=== PATIENT | female | born 1960 | race Caucasian/White ===

== ENCOUNTER 2019-12-12 11:23 | Emergency (ER) | payer MEDICAID ==
[2019-12-12 11:48] VITALS: BP 116/65
--- NOTE | 2019-12-12 12:54 | ED Physician Documentation ---
PD HPI URI - Stated complaint Stated Complaint: FEVER/SORE THROAT - Chief complaint Chief Complaint: General - History obtained from History obtained from: Patient - History of Present Illness Timing - onset: How many days ago (2) Timing duration: Days (2) Timing details: Abrupt onset, Still present Associated symptoms: Fever, Chills, Nasal congestion, Sore throat, Dry cough, Other (general aches) Contributing factors: Travel (She traveled to [facility] last week and returned yesterday. She started being ill while there 2 days ago. She has cough fever sore throat body aches and general malaise. She felt very tired and slept 12 hours yesterday and still feels tired. No headache or vomiting.) Similar symptoms before: Has not had sx before Review of Systems Constitutional: reports: Fever, Chills, Myalgias, Fatigue Nose: reports: Congestion Throat: reports: Sore throat Respiratory: reports: Cough GI: reports: Nausea. denies: Vomiting, Diarrhea Skin: denies: Rash Neurologic: reports: Headache (mild). denies: Confused, Altered mental status PD PAST MEDICAL HISTORY - Past Medical History Cardiovascular: None Respiratory: None - Present Medications Home Medications: Ambulatory Orders Medication Instructions Recorded Confirmed Benzonatate [Tessalon Perle] 100 mg PO TID PRN #20 capsule 12/12/19 Oseltamivir [Tamiflu] 75 mg PO BID #10 capsule 12/12/19 PD ED PE NORMAL - Vitals Vital signs reviewed: Yes - General General: Alert and oriented X 3, No acute distress, Well developed/nourished - HEENT HEENT: Ears normal, Moist mucous membranes, Pharynx benign - Neck Neck: Supple, no meningeal sign, No adenopathy - Cardiac Cardiac: RRR, No murmur - Respiratory Respiratory: No respiratory distress, Clear bilaterally - Abdomen Abdomen: Soft, Non tender - Derm Derm: Normal color, Warm and dry, No rash - Neuro Neuro: Alert and oriented X 3, No motor deficit, Normal speech (slight hoarseness) Results - Vitals Vitals: Vital Signs - 24 hr 12/12/19 11:44 Temperature 38.4 C H Heart Rate 90 Respiratory 18 Rate Blood Pressure 116/65 O2 Saturation 98 Oxygen O2 Source Room air - Labs Labs: Laboratory Tests 12/12/19 11:53 Influenza A (Rapid) POSITIVE H Influenza B (Rapid) Negative PD MEDICAL DECISION MAKING - ED course Complexity details: considered differential (She has flulike symptoms and test positive for influenza A. Clinically her throat does not look strep like. She does mention and request Tamiflu. Will treat symptoms as well.), d/w patient Departure - Departure Disposition: 01 Home, Self Care Clinical Impression: Influenza A Condition: Stable Record reviewed to determine appropriate education?: Yes Instructions: ED Flu Follow-Up: Gomez Manning [Primary Care Provider] - Prescriptions: Benzonatate [Tessalon Perle] 100 mg PO TID PRN #20 capsule PRN Reason: Cough Oseltamivir [Tamiflu] 75 mg PO BID #10 capsule Comments: Stay well-hydrated. Aspirin Tylenol or ibuprofen type medicines as needed for fevers and aches. [id number] cough medicine or even the honey and tea can be helpful for the cough. Use benzonatate if needed for cough suppression as well. Oseltamivir (Tamiflu) twice daily for 5 days to hopefully lessen the symptoms of the flu and decrease the duration a little bit. Anticipate about 8-day average duration for flu symptoms. Hopefully a day or 2 less with the Tamiflu. Discharge Date/Time: 12/12/19 13:20
[2019-12-12] MEDS ORDERED: BENZONATATE 100 MG CAPSULE PO STA (13:10)
[2019-12-12] MEDS ORDERED: NAPROXEN 250 MG TABLET PO STA (13:10)
[2019-12-12] MEDS ORDERED: DEXAMETHASONE 10 MG/ML VIAL PO STA (13:10)
[2019-12-12] MEDS ORDERED: CHERRY SYRUP 10 ML UDC PO ONE (13:10)
== END 2019-12-12 13:20 | disposition home or self-care (01) ==
LOC: ED 11:23
DX: J10.1 Influenza due to other identified influenza virus with other respiratory manifestations (principal)
CPT/HCPCS: 87275; 87276; 99283; 99284; A9270

== ENCOUNTER 2023-02-10 08:50 | Outpatient (CLI) | payer MEDICAID | END 2023-02-10 23:59 | disposition EMS.NT | LOC: EMS 08:50 | DX: S60.512A Abrasion of left hand, initial encounter (principal); Y04.2XXA Assault by strike against or bumped into by another person, initial encounter; Y92.414 Local residential or business street as the place of occurrence of the external cause ==

== ENCOUNTER 2023-11-24 21:32 | Outpatient (CLI) | payer BC | END 2023-11-24 21:33 | disposition critical access hospital (66) | LOC: EMS 21:32 | DX: Z04.6 Encounter for general psychiatric examination, requested by authority (principal); R41.82 Altered mental status, unspecified; F10.129 Alcohol abuse with intoxication, unspecified | CPT/HCPCS: A0425; A0429 ==

== ENCOUNTER 2023-11-24 21:40 | Emergency (ER) | payer BC, MEDICAID ==
--- NOTE | 2023-11-24 21:39 | ED Physician Documentation ---
History of Present Illness - Stated complaint Stated Complaint: ETOH - History obtained from History obtained from: EMS - Additonal information Additional information: HPI is almost exclusively from EMS; patient is minimally responding to my questions. However, she does answer a few of them, mostly with head gestures (yes/no nod/shake) but some answers are verbalized with 1-2 word answers. BIBA. Patient reportedly had a verbal argument with her , drove herself to [place] where EMS found her. Unclear who called 911. EMS arrived to find the patient's in her car, unresponsive. They also found a bottle of wine; the bottle was empty. En route to the ED, a nasal airway was placed due to patient's low GCS; however, the patient immediately sat up and was obviously awake at that point. Thus, the nasal trumpet was immediately removed. However, for the remainder of the trip to the emergency department, as well as for the most part on my attempts at HPI/ROS, the patient is sitting up with her head in her hands and not responding to most of my questions nor the questions of the ED staff. One of the questions she is answering regarding suicidal ideation: She shakes her head indicating "no" when asked if she is thinking of hurting herself or anyone else. She does this on 2 separate occasions when the question is asked one of the questions she is answering regarding suicidal ideation: She shakes her head indicating "no" when asked if she is thinking of hurting herself or anyone else. She does this on 2 separate occasions when the question is asked. Review of Systems Unable to obtain: Uncooperative PD PAST MEDICAL HISTORY - Past Medical History Past Medical History: No Other Past Medical History: unknown - Present Medications Home Medications: Ambulatory Orders Medication Instructions Recorded Confirmed Benzonatate [Tessalon Perle] 100 mg PO TID PRN #20 capsule 12/12/19 Oseltamivir [Tamiflu] 75 mg PO BID #10 capsule 12/12/19 - Allergies Allergies/Adverse Reactions: Allergies Allergy/AdvReac Type Severity Reaction Status Date / Time Unable to Assess Allergy Verified 11/24/23 21:52 PD ED PE NORMAL - Vitals Vital signs reviewed: Yes - General General: Well developed/nourished, Other (sitting up in stretcher, knees bent and holding head between knees and/or (at times) in her hands) - HEENT HEENT: Atraumatic, PERRL, EOMI (by observation ) - Cardiac Cardiac: RRR, No murmur - Respiratory Respiratory: No respiratory distress, Clear bilaterally - Abdomen Abdomen: Soft, Non tender - Derm Derm: Normal color, Warm and dry - Neuro Eye Opening: To Voice Motor: Localizes to Pain - Free text exam Free text exam: regarding GCS: cannot ascertain GCS, as she will not answer when asked what is the year, where she is Results - Vitals Vitals: Oxygen O2 Source Room air - Labs Labs: Laboratory Tests 11/24/23 11/24/23 21:48 21:48 WBC 6.0 RBC 4.98 Hgb 13.9 Hct 44.1 MCV 88.6 MCH 27.9 MCHC 31.5 L RDW 13.9 Plt Count 193 MPV 10.0 Neut # (Auto) 3.8 Lymph # (Auto) 1.6 [place] # (Auto) 0.4 Eos # (Auto) 0.1 Baso # (Auto) 0.0 Absolute Nucleated RBC 0.00 Nucleated RBC % 0.0 Sodium 137 Potassium 3.7 Chloride 102 Carbon Dioxide 23 Anion Gap 12.0 BUN 11 Creatinine 0.7 Estimated GFR (MDRD) 85 L Glucose 132 H Calcium 9.4 Magnesium 2.1 Total Bilirubin 0.4 AST 22 ALT 13 Alkaline Phosphatase 60 Total Creatine Kinase 95 Total Protein 7.1 Albumin 4.4 Globulin 2.7 Albumin/Globulin Ratio 1.6 Lipase 25 TSH 11.97 H Salicylates < 1.5 Acetaminophen 0.1 Ethyl Alcohol 166.6 PD Medical Decision Making - ED course Complexity details: reviewed results, re-evaluated patient, considered differential, d/w patient, d/w family ED course: Patient's arrived after my initial H+P. After tests resulted, I discussed the results with patient (with her express permission, this was done while was in the room). The patient is AAOx3 on reevaluation, in NAD, conversant and appropriate. She again denies SI. Normal CBC, ER abdominal panel. Incidental note of high TSH is d/w patient (11.97) and I advised her to follow up with PCP for further evaluation of this abnormal thyroid test. Patient is requesting d/c home and tells me she feels safe and comfortable with d/c home with (this was also discussed in absence of 's presence). Departure - Departure Disposition: 01 Home, Self Care Clinical Impression: Alcohol intoxication Qualifiers: Complication of substance-induced condition: uncomplicated Qualified Code(s): F10.920 - Alcohol use, unspecified with intoxication, uncomplicated Condition: Good Instructions: ED Alcohol Intoxication Follow-Up: Gomez Manning [Primary Care Provider] - Comments: As we discussed, an incidental finding that is abnormal enough to warrant mentioning it to your primary care provider is your TSH level. TSH stands for thyroid-stimulating hormone; it is generally considered the "screening test" for thyroid problems. Your TSH level was 11.97, with the high-normal being 5.6. Thus, your TSH level is twice as high as it should be. This can be further evaluated by your primary care provider; contact your PCP's office when they are next open to arrange for follow-up appointment. Forms: PCP List Discharge Date/Time: 11/24/23 23:23
[2023-11-24 21:56] LABS: BASOPHILS % (AUTO) 0.7 %; EOSINOPHILS # (AUTO) 0.1 10^3/uL (0.0-0.7); EOSINOPHILS % (AUTO) 1.3 %; HCT - HEMATOCRIT 44.1 % (37.0-47.0); HGB - HEMOGLOBIN 13.9 g/dL (12.0-16.0); LYMPHOCYTES # (AUTO) 1.6 10^3/uL (1.5-3.5); LYMPHOCYTES % (AUTO) 26.4 %; MEAN CORPUSCULAR HEMOGLOBIN 27.9 pg (27.0-31.0); MEAN CORPUSCULAR HGB CONC 31.5 g/dL (32.0-36.0); MEAN CORPUSCULAR VOLUME 88.6 fL (81.0-99.0); MONOCYTES # (AUTO) 0.4 10^3/uL (0.0-1.0); NEUTROPHILS # (AUTO) 3.8 10^3/uL (1.5-6.6); NEUTROPHILS % (AUTO) 64.3 %; PLT - PLATELET COUNT 193 10^3/uL (130-450); RED BLOOD COUNT 4.98 10^6/uL (4.20-5.40); RED CELL DISTRIBUTION WIDTH 13.9 % (12.0-15.0)
[2023-11-24 21:57] VITALS: O2SAT 100
[2023-11-24 22:16] LABS: ACETAMINOPHEN 0.1 ug/mL; ALBUMIN 4.4 g/dL (3.2-5.5); ALBUMIN/GLOBULIN RATIO 1.6 (1.0-2.2); ALKALINE PHOSPHATASE 60 IU/L (42-121); ALT ALANINE AMINOTRANSFERASE 13 IU/L (10-60); AST ASPARTATE AMINOTRANSFERASE 22 IU/L (10-42); BILIRUBIN,TOTAL 0.4 mg/dL (0.2-1.0); BUN - BLOOD UREA NITROGEN 11 mg/dL (6-20); CALCIUM 9.4 mg/dL (8.5-10.3); CARBON DIOXIDE - CO2 23 mmol/L (21-32); CHLORIDE 102 mmol/L (101-111); CK- CREATINE KINASE 95 IU/L (30-223); CREATININE 0.7 mg/dL (0.6-1.3); ETOH - ETHANOL 166.6 mg/dL; GFR - MDRD 85 (>89); GLUCOSE 132 mg/dL (74-104); LIPASE 25 U/L (11-82); MAGNESIUM 2.1 mg/dL (1.7-2.3); POTASSIUM 3.7 mmol/L (3.5-4.5); SODIUM 137 mmol/L (135-145); TOTAL PROTEIN 7.1 g/dL (6.4-8.9)
[2023-11-24] MEDS: SODIUM CHLORIDE 0.9% 1,000 ML IV STA (22:21)
[2023-11-24 22:24] LABS: THYROID STIMULATING HORMONE 11.97 uIU/mL (0.34-5.60)
[2023-11-24 22:33] LABS: SALICYLATE < 1.5 mg/dL
[2023-11-24 23:30] VITALS: BP 140/88
== END 2023-11-24 23:23 | disposition home or self-care (01) ==
LOC: EDUNIT# → ED 21:40
DX: F10.120 Alcohol abuse with intoxication, uncomplicated (principal); Y90.6 Blood alcohol level of 120-199 mg/100 ml; R94.6 Abnormal results of thyroid function studies; Z79.899 Other long term (current) drug therapy
CPT/HCPCS: 36415; 80053; 80307; 80320; 80329; 82550; 83690; 83735; 84443; 85025; 99283